=== PATIENT | male | born 1960 ===

== ENCOUNTER → 2018-04-10 | Outpatient (CLI) | payer MEDICAID, OTHER ==
[~2018-04-10] MED LIST: ASPI-621 PO; CARV6.2512 PO; FENO48TA16 PO; FURO-93 PO; GUAI5SYR PO; LISI-167 PO; METH8TAB PO; POTA10TA5 PO; QUET100T4 PO; QUET400T4 PO; REGADENOSON 0.4 MG/5 ML SYRINGE ONE
== END | disposition home or self-care (01) ==
LOC: CVU 06:59
PROVIDERS: ATTEND Internal Medicine Cardiovascular Disease
DX: I25.10 Atherosclerotic heart disease of native coronary artery without angina pectoris (principal); I35.8 Other nonrheumatic aortic valve disorders; I21.9 Acute myocardial infarction, unspecified; I10 Essential (primary) hypertension; E78.5 Hyperlipidemia, unspecified
CPT/HCPCS: 78452; 93017; A9502; C8929; J2785

== ENCOUNTER 2018-05-15 09:45 | Day surgery (SDC) | payer MEDICAID, OTHER ==
[~2018-05-15] VITALS: Ht 185.4 cm; Wt 102.3 kg
[~2018-05-15 09:45] MED LIST changes: -REGADENOSON 0.4 MG/5 ML SYRINGE ONE
[2018-05-15] MEDS ORDERED: SODIUM CHLORIDE 0.9% 1,000 ML IV ONE (10:09)
[2018-05-15 10:11] VITALS: BP 153/97
[2018-05-15] MEDS ORDERED: ATOR40TA78 PO (10:21)
[2018-05-15] MEDS ORDERED: CARV-39 PO (10:22)
[2018-05-15] MEDS ORDERED: ISOS30TA8 PO (10:24)
[2018-05-15] MEDS ORDERED: POTA10TA12 PO (10:25)
[2018-05-15] MEDS ORDERED: ASPIRIN 325 MG TABLET EC PO ONE (10:30)
[2018-05-15 10:45] LABS: BASOPHILS # (AUTO) 0.04 x10^3/uL (0-0.1); BASOPHILS % (AUTO) 1 % (0-1); EOSINOPHILS # (AUTO) 0.37 x10^3/uL (0-0.4); EOSINOPHILS % (AUTO) 8 % (1-7); LYMPHOCYTES # (AUTO) 1.56 x10^3/uL (1-3.4); LYMPHOCYTES % (AUTO) 33 % (22-44); MD NO; MEAN CORPUSCULAR HEMOGLOBIN 30.8 pg (27.5-34.5); MEAN CORPUSCULAR HGB CONC 33.8 g/dL (33.2-36.2); MEAN CORPUSCULAR VOLUME 91.2 fL (81-97); MEAN PLATELET VOLUME 9.1 fL (7.4-10.4); MONOCYTES # (AUTO) 0.36 x10^3/uL (0.2-0.8); MONOCYTES % (AUTO) 8 % (2-9); NEUTROPHILS # (AUTO) 2.41 x10^3/uL (1.8-6.8); NEUTROPHILS % (AUTO) 51 % (42-75); PLATELET COUNT 239 x10^3/uL (130-400); RED BLOOD COUNT 4.82 x10^6/uL (4.38-5.82); RED CELL DISTRIBUTION WIDTH 14.6 % (9.4-14.8)
[2018-05-15 10:52] LABS: ANION GAP 3 mmol/L (5-15); CHLORIDE 111 mmol/L (98-107); CREATININE 1.06 mg/dL (0.7-1.3)
[2018-05-15] MEDS ORDERED: HEPARIN 1,000 UNITS/ML, 10ML ONE (11:38)
[2018-05-15] MEDS ORDERED: FENTANYL PF 100 MCG/2ML ONE (11:38)
[2018-05-15] MEDS ORDERED: TICAGRELOR 90 MG TABLET ONE (11:38)
[2018-05-15] MEDS ORDERED: NITROGLYCERIN 5 MG/ML, 10ML ONE (11:38)
[2018-05-15] MEDS ORDERED: BIVALIRUDIN 250 MG ONE (11:38)
[2018-05-15] MEDS ORDERED: MIDAZOLAM 1 MG/ML, 5ML ONE (11:38)
[2018-05-15] MEDS ORDERED: VERAPAMIL 2.5 MG/ML, 2ML ONE (11:38)
[2018-05-15] MEDS ORDERED: LIDOCAINE-MPF 2% ,5ML ONE (11:39)
[2018-05-15] MEDS ORDERED: SODIUM CHLORIDE 0.9% 1,000 ML IV SCH (12:19)
== END 2018-05-15 14:45 ==
LOC: CACL 09:45
PROVIDERS: ATTEND Internal Medicine Cardiovascular Disease
DX: I25.10 Atherosclerotic heart disease of native coronary artery without angina pectoris (principal); I10 Essential (primary) hypertension; E78.5 Hyperlipidemia, unspecified; E11.9 Type 2 diabetes mellitus without complications; F17.210 Nicotine dependence, cigarettes, uncomplicated
CPT/HCPCS: 36415; 80048; 85025; 93458; 93571; 99156; C1769; C1894; J1644; J2250; J3010; J3490; Q9967; J0583

== ENCOUNTER → 2019-02-26 | Outpatient (CLI) | payer MEDICAID, OTHER ==
[~2019-02-26] MED LIST changes: -ASPI-621 PO; +ASPI81TA45 PO; +ATOR40TA78 PO; +CARV-39 PO; +ISOS30TA8 PO; +POTA10TA12 PO
== END | disposition home or self-care (01) ==
LOC: CFH 09:46
PROVIDERS: ATTEND Nurse Practitioner Family
DX: I35.8 Other nonrheumatic aortic valve disorders (principal); I10 Essential (primary) hypertension; I25.2 Old myocardial infarction; E78.5 Hyperlipidemia, unspecified; Z87.891 Personal history of nicotine dependence
CPT/HCPCS: 93306

== ENCOUNTER 2019-05-26 07:52 | Outpatient (CLI) | payer MEDICAID | END 2019-05-26 23:59 | disposition home or self-care (01) | LOC: CFH 07:52 | PROVIDERS: ATTEND Internal Medicine Cardiovascular Disease | DX: I08.2 Rheumatic disorders of both aortic and tricuspid valves (principal); I25.10 Atherosclerotic heart disease of native coronary artery without angina pectoris; I10 Essential (primary) hypertension; I25.2 Old myocardial infarction; E78.5 Hyperlipidemia, unspecified; Z72.0 Tobacco use | CPT/HCPCS: 93306 ==

== ENCOUNTER 2020-01-14 14:57 | Inpatient (IN) | payer MEDICAID ==
[~2020-01-14] VITALS: Ht 185.4 cm; Wt 108.5 kg
[2020-01-14] MEDS: ASPIRIN 81 MG TABLET EC PO SCH ×2 (09:00→16:56)
--- NOTE | 2020-01-14 15:16 | NUR ---
BIB CARE FLIGHT FROM [facility] IN [place]. PT INITIALLY C/O SOB OVER LAST COUPLE DAYS. PT STOPPED TAKING LASIX "ABOUT 6 MONTHS AGO". PT HAS HX CHF. 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 +MET AND THC. 18G RIGHT AND LEFT FOREARM. PT CONNECTED TO MONITORING. CALL LIGHT IN REACH. EKG COMPLETE.
--- NOTE | 2020-01-14 15:20 | NUR ---
INSURANCE EXAMINER PT RECEIVED 3950 BOLUS OF IV HEPARIN AND RECEIVED 12ML/KG HEPARING DRIP ON FLIGHT OVER. OK TO STOP HEPARIN DRIP UNTIL PHARMACY DOSES HEPARIN, PER .
[2020-01-14] MEDS ORDERED: HEPARIN 5,000 UNITS/ML, 1ML IV ONE (15:30)
[2020-01-14 15:51] LABS: ALBUMIN 3.9 g/dL (3.4-5.0); ANION GAP 7 mmol/L (5-15); CALCIUM 9.2 mg/dL (8.5-10.1); CHLORIDE 107 mmol/L (98-107); CREATININE 1.05 mg/dL (0.7-1.3)
[2020-01-14] MEDS ORDERED: HEPARIN 5,000 UNITS/ML, 1ML ONE (15:52)
[2020-01-14] MEDS ORDERED: HEPARIN 25,000 UNITS/250ML PMX 250 ML ONE (15:52)
[2020-01-14 15:53] LABS: BASOPHILS # (AUTO) 0.02 x10^3/uL (0-0.1); BASOPHILS % (AUTO) 0 % (0-1); EOSINOPHILS # (AUTO) 0.14 x10^3/uL (0-0.4); EOSINOPHILS % (AUTO) 2 % (1-7); LYMPHOCYTES # (AUTO) 0.95 x10^3/uL (1-3.4); LYMPHOCYTES % (AUTO) 13 % (22-44); MD NO; MEAN CORPUSCULAR HEMOGLOBIN 28.9 pg (27.5-34.5); MEAN CORPUSCULAR HGB CONC 32.7 g/dL (33.2-36.2); MEAN CORPUSCULAR VOLUME 88.3 fL (81-97); MONOCYTES # (AUTO) 0.09 x10^3/uL (0.2-0.8); MONOCYTES % (AUTO) 1 % (2-9); NEUTROPHILS # (AUTO) 6.07 x10^3/uL (1.8-6.8); NEUTROPHILS % (AUTO) 84 % (42-75); PLATELET COUNT 278 x10^3/uL (130-400); RED BLOOD COUNT 5.29 x10^6/uL (4.38-5.82); RED CELL DISTRIBUTION WIDTH 14.4 % (9.4-14.8)
[2020-01-14 15:54] LABS: TROPONIN I 0.106 ng/mL (0.000-0.045)
[2020-01-14] MEDS: HEPARIN 25,000 UNITS/250ML PMX 250 ML IV PRN (16:18)
--- NOTE | 2020-01-14 16:20 | NUR ---
HEPARIN STARTED PER PROTOCOL. SECOND RN, VILMA, VERIFIED DOSAGE. PT RESTING COMFORTABLY ON GURNEY. NADN.
--- NOTE | 2020-01-14 16:35 | NUR ---
HOSPITALIST AT BEDSIDE.
[2020-01-14] MEDS ORDERED: ASPIRIN 81 MG TABLET EC ONE (16:54)
--- NOTE | 2020-01-14 16:56 | NUR ---
MEDS ADMIN PER JAN. DIET TRAY DELIVERED. AWAITING ADMIT BED UPSTAIRS.
[2020-01-14] MEDS ORDERED: morphine SULFATE 10 MG/ML, 1ML IVPush PRN (17:00)
[2020-01-14] MEDS ORDERED: ACETAMINOPHEN 325 MG TABLET PO PRN (17:00)
--- NOTE | 2020-01-14 19:00 | NUR ---
PT RESTING COMFORTABLY ON GURNEY. NADN. AWAITING ADMIT BED UPSTAIRS.
--- NOTE | 2020-01-14 19:08 | NUR ---
LAB ANTI-XA LEVEL ORDERED FOR 2199.
--- NOTE | 2020-01-14 20:22 | NUR ---
REPORT GIVEN TO DAVID KATE.
[2020-01-14 20:30] LABS: TROPONIN I 0.092 ng/mL (0.000-0.045)
[2020-01-14 20:49] VITALS: BP 150/79
[2020-01-14] MEDS: ATORVASTATIN 40 MG TABLET PO SCH (21:52)
[2020-01-14] MEDS: CARVEDILOL 25 MG TABLET PO SCH (21:52)
[2020-01-14] MEDS: HEPARIN 5,000 UNITS/ML, 1ML IV PRN (22:53)
[2020-01-15 00:25] VITALS: BP 138/68
[2020-01-15 05:51] LABS: BASOPHILS # (AUTO) 0.05 x10^3/uL (0-0.1); BASOPHILS % (AUTO) 1 % (0-1); EOSINOPHILS % (AUTO) 0 % (1-7); LYMPHOCYTES # (AUTO) 0.91 x10^3/uL (1-3.4); LYMPHOCYTES % (AUTO) 12 % (22-44); MD NO; MEAN CORPUSCULAR HEMOGLOBIN 29.3 pg (27.5-34.5); MEAN CORPUSCULAR HGB CONC 33.2 g/dL (33.2-36.2); MEAN CORPUSCULAR VOLUME 88.3 fL (81-97); MEAN PLATELET VOLUME 8.8 fL (7.4-10.4); MONOCYTES # (AUTO) 0.24 x10^3/uL (0.2-0.8); MONOCYTES % (AUTO) 3 % (2-9); NEUTROPHILS # (AUTO) 6.74 x10^3/uL (1.8-6.8); NEUTROPHILS % (AUTO) 85 % (42-75); PLATELET COUNT 293 x10^3/uL (130-400); RED BLOOD COUNT 5.15 x10^6/uL (4.38-5.82); RED CELL DISTRIBUTION WIDTH 14.4 % (9.4-14.8)
[2020-01-15 06:03] LABS: ANION GAP 7 mmol/L (5-15); CALCIUM 8.6 mg/dL (8.5-10.1); CHLORIDE 107 mmol/L (98-107)
[2020-01-15 06:08] LABS: CHOL/HDL RATIO 2.6; CHOLESTEROL, TOTAL 102 mg/dL (140-239); CREATININE 1.09 mg/dL (0.7-1.3); HDL CHOL % 39 % (26-37); HDL CHOLESTEROL (DIRECT) 40 mg/dL (40-60); LDL CHOLESTEROL,CALCULATED 48 mg/dL (54-169); LDL/HDL RATIO 1.2 (0.5-3.0); TRIGLYCERIDES 70 mg/dL (50-200); TROPONIN I 0.064 ng/mL (0.000-0.045); VLDL CHOLESTEROL 14 mg/dL (0-25)
[2020-01-15 07:15] VITALS: BP 116/78
[2020-01-15] MEDS ORDERED: FUROSEMIDE 20 MG TABLET PO SCH (09:00)
[2020-01-15] MEDS ORDERED: FUROSEMIDE 40 MG/4 ML IV SCH (09:00)
[2020-01-15] MEDS: ISOSORBIDE MONONITRATE ER 30 MG TABLET PO SCH (09:06)
[2020-01-15] MEDS: CARVEDILOL 25 MG TABLET PO SCH ×2 (09:06→20:41)
[2020-01-15] MEDS: LISINOPRIL 10 MG TABLET PO SCH (09:06)
[2020-01-15] MEDS: FUROSEMIDE 40 MG/4 ML IV SCH ×2 (09:07→18:07)
[2020-01-15] MEDS: ASPIRIN 81 MG TABLET EC PO SCH (09:09)
[2020-01-15] MEDS: HEPARIN 25,000 UNITS/250ML PMX 250 ML IV PRN (14:17)
[2020-01-15 14:52] VITALS: BP 95/55
[2020-01-15] MEDS: HEPARIN 5,000 UNITS/ML, 1ML IV PRN (15:22)
[2020-01-15] MEDS: ATORVASTATIN 40 MG TABLET PO SCH (20:35)
[2020-01-15 20:41] VITALS: BP_SYST 95; BP_DIAS 56; BP_DIAS 57
[2020-01-16 01:52] VITALS: BP 105/67
[2020-01-16 05:10] LABS: BASOPHILS # (AUTO) 0.06 x10^3/uL (0-0.1); BASOPHILS % (AUTO) 1 % (0-1); EOSINOPHILS # (AUTO) 0.15 x10^3/uL (0-0.4); EOSINOPHILS % (AUTO) 2 % (1-7); LYMPHOCYTES # (AUTO) 2.41 x10^3/uL (1-3.4); LYMPHOCYTES % (AUTO) 33 % (22-44); MD NO; MEAN CORPUSCULAR HEMOGLOBIN 28.5 pg (27.5-34.5); MEAN CORPUSCULAR HGB CONC 32.1 g/dL (33.2-36.2); MEAN CORPUSCULAR VOLUME 88.8 fL (81-97); MEAN PLATELET VOLUME 8.9 fL (7.4-10.4); MONOCYTES % (AUTO) 8 % (2-9); NEUTROPHILS # (AUTO) 4.11 x10^3/uL (1.8-6.8); NEUTROPHILS % (AUTO) 56 % (42-75); PLATELET COUNT 238 x10^3/uL (130-400); RED BLOOD COUNT 5.06 x10^6/uL (4.38-5.82); RED CELL DISTRIBUTION WIDTH 14.8 % (9.4-14.8)
[2020-01-16] MEDS: ASPIRIN 81 MG TABLET EC PO SCH (05:12)
[2020-01-16] MEDS: FUROSEMIDE 40 MG/4 ML IV SCH (05:13)
[2020-01-16 05:19] LABS: ALBUMIN 3.2 g/dL (3.4-5.0); ANION GAP 6 mmol/L (5-15); CALCIUM 8.8 mg/dL (8.5-10.1); CHLORIDE 107 mmol/L (98-107); CREATININE 1.19 mg/dL (0.7-1.3)
[2020-01-16 06:59] VITALS: BP 114/86
[2020-01-16] MEDS: LISINOPRIL 10 MG TABLET PO SCH (09:24)
[2020-01-16] MEDS: ISOSORBIDE MONONITRATE ER 30 MG TABLET PO SCH (09:24)
[2020-01-16] MEDS: CARVEDILOL 25 MG TABLET PO SCH (09:24)
== END 2020-01-16 14:40 | disposition home or self-care (01) | DRG 190 ==
LOC: ED 16:30 → EDIP 17:15 → 5SO 20:41 → DCLOUNGE 01-16 14:24
PROVIDERS: ADMIT Internal Medicine Infectious Disease; ATTEND Family Medicine
DX: I21.4 Non-ST elevation (NSTEMI) myocardial infarction (principal); I11.0 Hypertensive heart disease with heart failure; I42.7 Cardiomyopathy due to drug and external agent; I50.9 Heart failure, unspecified; E78.5 Hyperlipidemia, unspecified; F15.10 Other stimulant abuse, uncomplicated; F17.200 Nicotine dependence, unspecified, uncomplicated; T43.625A Adverse effect of amphetamines, initial encounter; J44.9 Chronic obstructive pulmonary disease, unspecified; I25.10 Atherosclerotic heart disease of native coronary artery without angina pectoris; I25.2 Old myocardial infarction; Y92.098 Other place in other non-institutional residence as the place of occurrence of the external cause; Z82.49 Family history of ischemic heart disease and other diseases of the circulatory system; Z91.14 Patient's other noncompliance with medication regimen; Z91.19 Patient's noncompliance with other medical treatment and regimen; Z79.899 Other long term (current) drug therapy
CPT/HCPCS: 36415; 71045; 80048; 80061; 80069; 82040; 83735; 83880; 84484; 85025; 85520; 93005; 93306; G0378; J1644; J1940

== ENCOUNTER → 2020-08-31 | Outpatient (CLI) | payer MEDICAID | END | disposition home or self-care (01) | LOC: CFH 07:34 | PROVIDERS: ATTEND Internal Medicine Cardiovascular Disease | DX: I08.2 Rheumatic disorders of both aortic and tricuspid valves (principal); I11.0 Hypertensive heart disease with heart failure; I25.10 Atherosclerotic heart disease of native coronary artery without angina pectoris; I50.22 Chronic systolic (congestive) heart failure | CPT/HCPCS: 93306 ==

== ENCOUNTER → 2021-04-14 | Outpatient (CLI) | payer MEDICAID | END | disposition home or self-care (01) | LOC: CFH 10:03 | PROVIDERS: ATTEND Internal Medicine Cardiovascular Disease | DX: I08.8 Other rheumatic multiple valve diseases (principal); I25.10 Atherosclerotic heart disease of native coronary artery without angina pectoris; I25.2 Old myocardial infarction; E78.5 Hyperlipidemia, unspecified; I10 Essential (primary) hypertension; J44.9 Chronic obstructive pulmonary disease, unspecified; Z87.891 Personal history of nicotine dependence | CPT/HCPCS: 93306 ==

== ENCOUNTER 2021-05-14 11:10 | Inpatient (IN) | payer MEDICAID ==
[~2021-05-14] VITALS: Ht 185.4 cm; Wt 104.0 kg
[2021-05-14] MEDS ORDERED: HEPARIN/D5W 25,000 UNITS/250 ML PREMIX IV SCH (15:00)
[2021-05-14 15:01] VITALS: BP 114/71
[2021-05-14] MEDS ORDERED: PLEASE ENTER HEIGHT AND WEIGHT MC SCH (15:30)
[2021-05-14] MEDS ORDERED: OXYcodone IR 5MG TABLET PO PRN (15:30)
[2021-05-14] MEDS ORDERED: POLYETHYLENE GLYCOL 17 GM PACKET PO PRN (15:30)
[2021-05-14] MEDS ORDERED: BISACODYL 10 MG SUPP PR PRN (15:30)
[2021-05-14] MEDS ORDERED: morphine SULFATE 10 MG/ML, 1ML IVPush PRN (15:30)
[2021-05-14] MEDS ORDERED: hydrALAzine 20 MG/ML, 1ML IVPush PRN (15:30)
[2021-05-14] MEDS ORDERED: ONDANSETRON ODT 4 MG PO PRN (15:30)
[2021-05-14] MEDS ORDERED: PROMETHAZINE 25 MG/ML, 1ML IM PRN (15:30)
[2021-05-14] MEDS ORDERED: DOCUSATE 100 MG CAPSULE PO PRN (15:30)
[2021-05-14] MEDS ORDERED: ACETAMINOPHEN 325 MG TABLET PO PRN (15:30)
[2021-05-14] MEDS: HEPARIN 5,000 UNITS/ML, 1ML SQ SCH (15:58)
[2021-05-14 16:17] LABS: BASOPHILS % (AUTO) 1 % (0-1); EOSINOPHILS % (AUTO) 6 % (1-7); LYMPHOCYTES % (AUTO) 23 % (22-44); MEAN CORPUSCULAR HEMOGLOBIN 27.4 pg (27.5-34.5); MEAN CORPUSCULAR HGB CONC 32.3 g/dL (33.2-36.2); MEAN PLATELET VOLUME 8.6 fL (7.4-10.4); MONOCYTES % (AUTO) 12 % (2-9); NEUTROPHILS % (AUTO) 59 % (42-75); PLATELET COUNT 193 x10^3/uL (130-400); RED BLOOD COUNT 4.62 x10^6/uL (4.38-5.82); RED CELL DISTRIBUTION WIDTH 18.4 % (9.4-14.8)
[2021-05-14 16:32] LABS: ALANINE AMINOTRANSFERASE 19 U/L (12-78); ALBUMIN 2.9 g/dL (3.4-5.0); ANION GAP 3 mmol/L (5-15); CALCIUM 8.2 mg/dL (8.5-10.1); CHLORIDE 109 mmol/L (98-107); CREATININE 1.17 mg/dL (0.7-1.3)
[2021-05-14 16:43] LABS: ALKALINE PHOSPHATASE 68 U/L (45-117); FREE T4 (FREE THYROXINE) 1.23 ng/dL (0.76-1.46); TOTAL PROTEIN 6.9 g/dL (6.4-8.2); TROPONIN I 0.861 ng/mL (0.000-0.045)
[2021-05-14] MEDS: FUROSEMIDE 20 MG/2 ML IV SCH (17:46)
[2021-05-14 19:12] LABS: AMPHETAMINE SCREEN, URINE Positive (Negative); BARBITURATE SCREEN, URINE Negative (Negative); BENZODIAZEPINE SCREEN, URINE Negative (Negative); CANNABINOID SCREEN, URINE Negative (Negative); COCAINE SCREEN, URINE Negative (Negative); METHADONE SCREEN, URINE Negative (Negative); OPIATE SCREEN, URINE Negative (Negative)
[2021-05-14 19:34] VITALS: BP 127/68
[2021-05-14 20:43] LABS: TROPONIN I 0.849 ng/mL (0.000-0.045)
[2021-05-15] MEDS: HEPARIN 5,000 UNITS/ML, 1ML SQ SCH ×3 (00:07→15:29)
[2021-05-15 01:16] VITALS: BP 111/78
[2021-05-15 05:15] LABS: BASOPHILS % (AUTO) 1 % (0-1); EOSINOPHILS % (AUTO) 6 % (1-7); LYMPHOCYTES % (AUTO) 22 % (22-44); MEAN CORPUSCULAR HGB CONC 32.8 g/dL (33.2-36.2); MEAN PLATELET VOLUME 9.1 fL (7.4-10.4); MONOCYTES % (AUTO) 17 % (2-9); NEUTROPHILS % (AUTO) 54 % (42-75); PLATELET COUNT 172 x10^3/uL (130-400); RED BLOOD COUNT 4.64 x10^6/uL (4.38-5.82)
[2021-05-15 05:27] LABS: ALBUMIN 2.8 g/dL (3.4-5.0); ANION GAP 7 mmol/L (5-15); CALCIUM 8.5 mg/dL (8.5-10.1); CHLORIDE 109 mmol/L (98-107)
[2021-05-15 05:35] LABS: ALANINE AMINOTRANSFERASE 16 U/L (12-78); ALKALINE PHOSPHATASE 67 U/L (45-117); BILIRUBIN,TOTAL 0.8 mg/dL (0.2-1.0); CHOL/HDL RATIO 2.6; CHOLESTEROL, TOTAL 81 mg/dL (140-239); CREATININE 1.03 mg/dL (0.7-1.3); HDL CHOL % 38 % (26-37); HDL CHOLESTEROL (DIRECT) 31 mg/dL (40-60); LDL CHOLESTEROL,CALCULATED 39 mg/dL (54-169); LDL/HDL RATIO 1.3 (0.5-3.0); TRIGLYCERIDES 57 mg/dL (50-200); VLDL CHOLESTEROL 11 mg/dL (0-25)
[2021-05-15 06:23] VITALS: BP 123/83
[2021-05-15] MEDS: FUROSEMIDE 20 MG/2 ML IV SCH (08:44)
[2021-05-15 11:20] LABS: TROPONIN I 0.731 ng/mL (0.000-0.045)
[2021-05-15 13:29] VITALS: BP 99/68
[2021-05-15 13:49] LABS: TROPONIN I 0.733 ng/mL (0.000-0.045)
[2021-05-15] MEDS: AMPICILLIN/SULBACTAM 3 GM in SODIUM CHLORIDE 0.9% 100 ML IV SCH ×2 (17:08→22:43)
[2021-05-15 20:21] VITALS: BP 123/81
[2021-05-15] MEDS: BACITRACIN OINT 500U/GM, 28GM TP SCH (20:50)
[2021-05-16] MEDS: HEPARIN 5,000 UNITS/ML, 1ML SQ SCH ×3 (00:09→15:39)
[2021-05-16 00:51] VITALS: BP 136/81
[2021-05-16] MEDS: AMPICILLIN/SULBACTAM 3 GM in SODIUM CHLORIDE 0.9% 100 ML IV SCH ×3 (04:09→16:30)
[2021-05-16 05:32] LABS: BASOPHILS % (AUTO) 1 % (0-1); EOSINOPHILS % (AUTO) 7 % (1-7); LYMPHOCYTES % (AUTO) 21 % (22-44); MEAN CORPUSCULAR HEMOGLOBIN 27.9 pg (27.5-34.5); MEAN CORPUSCULAR HGB CONC 32.5 g/dL (33.2-36.2); MONOCYTES % (AUTO) 11 % (2-9); NEUTROPHILS % (AUTO) 60 % (42-75); PLATELET COUNT 185 x10^3/uL (130-400); RED CELL DISTRIBUTION WIDTH 18.6 % (9.4-14.8)
[2021-05-16 05:39] LABS: ANION GAP 6 mmol/L (5-15); CALCIUM 8.6 mg/dL (8.5-10.1); CHLORIDE 108 mmol/L (98-107)
[2021-05-16 05:45] LABS: CREATININE 0.92 mg/dL (0.7-1.3); TROPONIN I 0.613 ng/mL (0.000-0.045)
[2021-05-16 07:56] VITALS: BP 140/76
[2021-05-16] MEDS: BACITRACIN OINT 500U/GM, 28GM TP SCH (08:43)
[2021-05-16] MEDS ORDERED: FUROSEMIDE 20 MG/2 ML IV SCH (09:00)
[2021-05-16] MEDS ORDERED: BACI28.42 TP (12:01)
[2021-05-16] MEDS ORDERED: AMOX1TAB64 PO (12:01)
[2021-05-16] MEDS ORDERED: LISINOPRIL 10 MG TABLET PO SCH (12:30)
[2021-05-16] MEDS ORDERED: ISOSORBIDE MONONITRATE ER 30 MG TABLET PO SCH (12:30)
[2021-05-16 13:03] VITALS: BP 119/82
[2021-05-16] MEDS ORDERED: CARVEDILOL 25 MG TABLET PO SCH (18:00)
== END 2021-05-16 17:16 | disposition home or self-care (01) | DRG 190 ==
LOC: 5SO 14:46
PROVIDERS: ADMIT Internal Medicine Infectious Disease; ATTEND Internal Medicine Infectious Disease
DX: I21.4 Non-ST elevation (NSTEMI) myocardial infarction (principal); I50.43 Acute on chronic combined systolic (congestive) and diastolic (congestive) heart failure; I11.0 Hypertensive heart disease with heart failure; I42.8 Other cardiomyopathies; I25.10 Atherosclerotic heart disease of native coronary artery without angina pectoris; I25.2 Old myocardial infarction; F15.10 Other stimulant abuse, uncomplicated; E78.5 Hyperlipidemia, unspecified; I34.0 Nonrheumatic mitral (valve) insufficiency; J44.9 Chronic obstructive pulmonary disease, unspecified; Z87.891 Personal history of nicotine dependence; Z91.14 Patient's other noncompliance with medication regimen; Z91.19 Patient's noncompliance with other medical treatment and regimen
CPT/HCPCS: 36415; 71045; 80048; 80053; 80061; 80307; 83036; 83735; 84100; 84439; 84443; 84484; 85025; 93005; G0378; J0295; J1644; J1940